=== PATIENT | female | born 1990 | race Caucasian/White ===

== ENCOUNTER 2018-12-22 09:00 | Inpatient (IN) | payer MEDICAID, OTHER, SELFPAY ==
--- NOTE | 2018-12-22 08:09 | PDOC.FPROB ---
FMR OB H&P: HPI - History of Present Illness Chief Complaint: repeat section History of Present Illness: 28 yo @ 39.wks by 8.1wk rajesh presents for repeat section X 3. She has had two prio CS completed here. She cari VB, contractions, LOF, vaginal discharge. +FM. FMR OB H&P: History - Past Medical History PMH: Glucose intolerance Anemia of Depression vs Adjustment d/o Hx of glaucoma - OB History OB History: Prior hx of two CS, 2013 ,2016 First CS for failure to dilate and late decels, second was a repeat. 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 - Surgical History Sx History: two prior CS - Social History Social History: denies smoking, alcohol, drug use - Family History Family History: maternal aunt with ovarian cancer-pt approved for RRS FMR OB H&P: Medications - Current Home Medications: Medication Instructions Recorded Confirmed Type Pnv95/Iron Fum/Folic Acid 1 each PO DAILY 09/14/16 12/22/18 History [ [place]] Allergies/Adverse Reactions: Allergies Allergy/AdvReac Type Severity Reaction Status Date / Time No Known Allergies Allergy Verified 12/22/18 10:42 FMR OB H&P: ROS - Review of Systems General: denies: fever/chills, weight/appetite/sleep changes ENT: denies: nasal congestion, rhinorrhea Respiratory: denies: cough, congestion, shortness of breath Gastrointestinal: denies: abdominal pain, nausea, vomiting, diarrhea Genitourinary (Female): denies: vaginal discharge, vaginal pain, vaginal bleeding, contractions Musculoskeletal: denies: pain Neurologic: denies: numbness, syncope Integumentary: denies: rash Endocrine: denies: polydipsia, polyuria, polyphagia Psychological: denies: depression, anxiety FMR OB H&P: Vital Signs - Maternal Vital signs: Selected Entries 12/22/18 10:41 Temperature 97.8 F Pulse Rate 88 Blood Pressure 114/60 [Semi-Fowlers] Respiratory 20 Rate - Heart Tones Baseline: 140 Variability: moderate Acceleration: present Category: category 1 FMR OB H&P: Physical Exam - Physical Exam General: NAD, awake, alert and oriented HEENT: normocephalic and atraumatic Heart: RRR, normal S1/S2, no murmurs/rubs/gallops, pulses present, no edema General: CTAB, good air movement Abdomen: soft, gravid Musculoskeletal: pulses present Skin: no rash, capillary refill <2 seconds Lymphatic: no unusual bruising or bleeding, no purpura Psychiatric: intact recent and remote memory, good judgement and insight FMR OB H&P: Results - Labs Other labs: HIV negative Rubella Immune Hep B surf AG negative RPR negative Gonorrhea negative Chlamydia negative O positive antibody negative Pap NILM Reba infection s/p treatment BV s/p treatment Varicella immune FMR OB H&P: A/P - Problem List (1) Term Current Visit: No Status: Acute Code(s): Z34.80 - ENCOUNTER FOR SUPRVSN OF NORMAL , UNSP TRIMESTER (2) Anemia affecting in third trimester Current Visit: No Status: Acute Code(s): O99.013 - ANEMIA COMPLICATING , THIRD TRIMESTER (3) Glucose intolerance Current Visit: No Status: Acute Code(s): E74.39 - OTHER DISORDERS OF INTESTINAL CARBOHYDRATE ABSORPTION (4) Hx of glaucoma Current Visit: No Status: Acute Code(s): Z86.69 - PERSONAL HISTORY OF DIS OF THE NERVOUS SYS AND SENSE ORGANS (5) History of Current Visit: Yes Status: Acute Code(s): Z98.891 - HISTORY OF UTERINE SCAR FROM PREVIOUS SURGERY Discussion: Date/Time: 12/22/18 0808 28 yo @ 39.1wks by 8.1wk rajesh admitted for repeat section. 1.)sIUP-admit to L&D. Consult anesthesia. Ancef for prophylaxis. Labs ordered. 2.)GBS positive- aware. pt to receive Ancef prior to section. Pt not ruptured or in labor and no allergies to pcn 3.)glucose intolerance-aware, has been counseled on diet during 4.)hx of candidal, vaginal infection, s/p tx 5.)hx of BV, s/p tx 6.)glaucoma hx-aware 7.)repeat x2 hx-aware; both prior cesareans completed here 8.)depression vs adjustment d/o-aware, continue to monitor Kimi Aguirre MD, PGY-2 This H&P was discussed with [] and [] who agree with the above documentation and plan. Addendum - Attending - Attending Attestation Date/Time: 12/22/18 5528 I personally evaluated the patient and discussed the management with Dr. Henriquez this morning at time of admission. I agree with the History, Examination, Assessment and Plan documented above with any addition or exceptions noted below.
[~2018-12-22 09:00] MED LIST: Bicitra 30 ML UDCUP PO SCH; CEFAZOLIN 2 GM in Premix Bag 1 BAG IVPB SCH; Ondansetron PF 4 MG/2 ML Vial IVP PRN; Promethazine HCl 25 MG/ML VIAL IM PRN
[2018-12-22 10:50] VITALS: BMI 33.6
[2018-12-22 11:16] LABS: Hemoglobin 11.2 g/dL (12.0-16.0); Mean Corpuscular HGB CONC 33.3 g/dL (32.0-36.0); Mean Corpuscular Hemoglobin 28.3 pg (27.0-31.0); Mean Corpuscular Volume 84.9 fL (78.0-98.0); Mean Platelet Volume 7.6 fL (7.4-10.4); Platelet Count 272 thou/uL (130-400); RBC Distribution Width 13.5 % (11.5-14.5); Red Blood Cell (RBC) Count 3.97 mill/uL (4.20-5.40); White Blood Cell (WBC) Count 8.1 thou/uL (4.8-10.8)
[2018-12-22 11:59] LABS: Syphilis Antibody Nonreactive (Nonreactive); Syphilis Antibody Index 0.03 S/CO (<1.00 Non-Reactive)
[2018-12-22] MEDS ORDERED: MORPHINE 5 MG/10 ML PF VIAL ONE (12:04)
[2018-12-22] MEDS ORDERED: Oxytocin 10 UNITS/ML VIAL ONE ×2 (12:05→13:57)
[2018-12-22 12:37] LABS: HBSAg Index 0.32 S/CO (0-0.99); Hep B Surf Ag Non-Reactive S/CO (NonReactive)
[2018-12-22] MEDS ORDERED: Promethazine HCl 25 MG/ML VIAL IM PRN ×2 (13:31→14:21)
[2018-12-22] MEDS ORDERED: Ketorolac Tromethamine 30 MG/ML VIAL IVP PRN (13:31)
[2018-12-22] MEDS ORDERED: Naloxone HCl 0.4 mg/ml Vial IV PRN ×2 (13:31→14:21)
[2018-12-22] MEDS ORDERED: Ondansetron PF 4 MG/2 ML Vial IVP PRN ×2 (13:31→14:21)
[2018-12-22] MEDS ORDERED: Promethazine HCl 25 MG SUPP PR PRN (13:31)
[2018-12-22] MEDS ORDERED: Naloxone HCl 0.4 mg/ml Vial IVP PRN ×2 (13:31)
[2018-12-22] MEDS ORDERED: Eucerin (Mineral Oil/Petrolatum,White) 30 gm Jar TOP PRN (13:31)
[2018-12-22] MEDS ORDERED: diphenhydrAMINE 50 MG/ML VIAL IVP PRN ×2 (13:31→14:21)
[2018-12-22] MEDS ORDERED: Ondansetron HCl/PF 4 MG/2 ML Vial IVP PRN ×2 (13:32→14:21)
[2018-12-22] MEDS ORDERED: L&D-Morphine 4 MG/ML VIAL SLOW IVP PRN ×2 (13:32→14:21)
[2018-12-22] MEDS ORDERED: HYDROmorphone 2 MG/ML VIAL SLOW IVP PRN ×2 (13:32→14:21)
[2018-12-22] MEDS ORDERED: Meperidine HCl/PF 25 MG/ML VIAL SLOW IVP PRN ×2 (13:32→14:21)
[2018-12-22] MEDS ORDERED: Midazolam HCl 2 mg/2 ml Vial ONE (13:43)
[2018-12-22] MEDS ORDERED: Fentanyl 100 MCG/2 ML VIAL ONE (13:43)
[2018-12-22] MEDS ORDERED: Ketorolac Tromethamine 30 MG/ML VIAL IVP SCH ×2 (13:45→14:30)
[2018-12-22] MEDS ORDERED: Communication Order-Pharmacy FS SCH ×2 (13:45→14:30)
[2018-12-22] MEDS ORDERED: Ketamine 50 MG/ML (10ML VIAL) ONE (14:00)
[2018-12-22] MEDS ORDERED: fentaNYL Citrate/PF 2,000 MCG in Sodium Chloride 0.9% 60 ML IV PRN (14:21)
[2018-12-22] MEDS ORDERED: Zolpidem Tartrate 5 MG TAB PO PRN (14:21)
[2018-12-22] MEDS ORDERED: diphenhydrAMINE 50 MG/ML VIAL IM PRN (14:21)
[2018-12-22] MEDS ORDERED: diphenhydrAMINE 25 MG CAP PO PRN (14:21)
[2018-12-22] MEDS ORDERED: HYDROcodone/Acetaminophen 5/325 mg Tablet PO PRN ×2 (15:36)
[2018-12-22] MEDS ORDERED: Methylergonovine 0.2 MG TAB PO PRN (15:36)
[2018-12-22] MEDS ORDERED: Adacel (T-DAP) 0.5 ML SYRINGE IM ONE (15:36)
[2018-12-22] MEDS ORDERED: Methylergonovine 0.2 MG/ML VIAL IM PRN (15:36)
[2018-12-22] MEDS ORDERED: Bisacodyl 10 MG SUPP PR PRN (15:36)
[2018-12-22] MEDS ORDERED: Misoprostol 200 MCG TAB PR PRN (15:36)
[2018-12-22] MEDS ORDERED: Lanolin Ointment 7 GM TUBE TOP PRN (15:36)
[2018-12-22] MEDS ORDERED: Acetaminophen 325 MG TAB PO PRN (15:36)
--- NOTE | 2018-12-22 16:42 | PDOC.OPDEL ---
OB Operative/Delivery Note Delivery Dr/Surgeon: Martinez Assist: Omar Pre-Delivery Diagnosis: scheduled section Procedure/Post Delivery Dx: repeat low transverse CS Weeks gestation: 39 (39.1) Anesthesia: spinal - Findings A Sex: female - 1 min: 8 - 5 min: 9 - Additional Findings/Plan Placenta delivered: manual removal findings: low transverse hysterotomy without extension Estimated blood loss: qBL: 505 Compilations/Other Findings: Procedure Note Date of Procedure: 12/22/18 Resident Surgeon: Kimi Henriquez, PGY-2, MD Payment Manager Surgeon: Lillie Nelson, PGY-1, MD Attending Surgeon: Martha Hernandez MD Consulting Surgeon: Dr Jonah Pineda MD Procedure: Repeat low transverse caesarean section, with risk-reducing bilateral salpingectomy. Preoperative Diagnosis: 1)Term intrauterine 2)Previous X 2 3)Glucose Intolerance 4)Anemia of 5.)Hx of Glaucoma 6.)MDD vs Adjustment d/o Postoperative Diagnosis: 1)Term intrauterine , delivered via repeat CS 2)Previous X 2 3)Glucose Intolerance 4)Anemia of 5.)Hx of Glaucoma 6.)MDD vs Adjustment d/o Anesthesia: spinal Indications: The patient is a 28 year old now [id number] female at 39.1 weeks gestation who presents for a repeat scheduled x 3. Procedure in Detail: After risks, benefits, and alternatives were explained to the patient, informed consent was obtained. Pre-operative antibiotics included Cefazolin 2 gram IV. The patient was taken to the operating room and spinal anesthesia was administered. She was placed in the dorsal supine position with a left tilt and prepped and draped in usual sterile fashion. After adequate anesthesia was confirmed, a Pfannenstiel incision was made with a scalpel and carried down to the level of the anterior rectus fascia which was sharply nicked. The fascial incision was extended bilaterally with Cui sissors. The inferior and superior edges of the fascial incision were elevated with Horace clamps and the underlying rectus muscles were sharply and bluntly . The recti were divided digitally and divided with hemostats and retracted manually and retracted with hemostats and via bovi. The peritoneum was entered bluntly digitally. Anterior uteroperitoneal and uterovesicular adhesions were noted and reduced the expose the lower uterine segment. The Bladder blade was placed. A low transverse score was made with the scalpel and the uterus was entered in the midline with the scalpel. Clear amniotic fluid was seen. The hysterotomy was extended manually in the cephalocaudal fashion. The infant was noted to be vertex and was easily delivered by fundal pressure. Mouth and nares were bulb suctioned. Cord clamped and cut and live female was handed to waiting nurse. was vigorous. Cord blood was obtained. Placenta was manually extracted, found to be intact with 3 vessel cord. The uterus was externalized and the endometrium was cleared with a dry lap. The bladder blade was replaced and the hysterotomy was closed with a running locking #1 Monocryl suture, with four additional figure of eight stitches of the same suture. Following this, hemostasis was confirmed. Our attention turned to the risk reducing salpingectomy which was performed by Dr Jonah Pineda in the usual fashion. Good hemostasis was confirmed. Blood was cleared from the abdominal cavity with a lap and suction. Hemostatis reconfirmed. The uterus was internalized. Omce internalized, the hysterotomy was noted to have some bleeding from the right edge of the hysterotomy, which required an additional figure of eight stitch using #1 Monocryl suture. Following this, good hemostasis was confirmed. The fascia was closed with a running non-locking 0- Vicryl suture. The subcutaneous tissue was irrigated and any small bleeding was bovied resulting in hemostasis. The skin was approximated with jean and a pressure dressing was placed. All counts were correct. The patient tolerated the procedure well and was taken to the recovery room in stable condition. Estimated Blood Loss: 800ml QBL: 505 ml Complications: None Grossly normal female infant with Apgars of 8 & 9. Grossly normal placenta with 3 vessel cord discarded. Drains: [place] to gravity draining clear urine Post delivery plan: recovery in LICU
[2018-12-22] MEDS: Lactated Ringer's 1,000 ML IV SCH (18:08)
[2018-12-22] MEDS: Ketorolac Tromethamine 30 MG/ML VIAL IVP SCH (18:08)
--- NOTE | 2018-12-22 20:45 | OP ---
DATE OF PROCEDURE: 12/22/2018 PREOPERATIVE DIAGNOSIS: Desirous of risk reducing salpingectomy. POSTOPERATIVE DIAGNOSIS: Desirous of risk reducing salpingectomy. PROCEDURE PERFORMED: Bilateral salpingectomies. SYSTEMS SUPPORT SPECIALIST SURGEON: Kit Hernandez MD. SECOND AUTOMATIC BLOCKER SURGEON: Kamla Henriquez MD. TECHNIQUE IN DETAIL: Pt. was consented prior to procedure. Upon my arrival to the operating room, the had been performed for this patient by Dr. Hernandez and the Resident and the hysterotomy incision had been closed. Good hemostasis was noted across the hysterotomy incision. Attention was turned to the left fallopian tube. The fimbriated end was noted and the mesosalpinx was serially clamped, excised, and suture ligated. This was carried up to the insertion of the tube into the fundus. Good hemostasis was noted on the left side. A similar procedure was carried out on the other side also employing Monocryl suture. Good hemostasis was noted on both sides. The case was then turned over to Dr. Hernandez and his team for closure of the anterior abdominal wall and completion of the surgery. Job ID: [id number] [facility]
[2018-12-23] MEDS: Docusate Calcium (SURFAK) 240 MG CAP PO SCH ×3 (06:23→20:33)
[2018-12-23] MEDS: Ketorolac Tromethamine 30 MG/ML VIAL IVP SCH ×3 (06:23→13:23)
[2018-12-23] MEDS: Lactated Ringer's 1,000 ML IV SCH ×4 (06:29→18:02)
--- NOTE | 2018-12-23 07:19 | PDOC.OBPPN ---
FMR OB PN: Subj - Interval History Day: 1 Chief Complaint: repeat CS X3 Indentification: 28 yo now3 Interval History: doing well. keys pulled. tolerating normal diet. passing flatus. FMR OB PN: Obj - Maternal Vital signs: BP: [] HR: [] RR: [] Tmax: [] Pox: []% on [] Wt: [] Selected Entries 12/23/18 05:00 Temperature 98.0 F Pulse Rate 101 H Blood Pressure 105/60 [Semi-Fowlers] Respiratory 18 Rate O2 Sat by Pulse 99 Oximetry - Urine output I&O: 12/22/18 12/23/18 12/24/18 06:59 06:59 06:59 Intake Total 2221 Output Total 6050 Balance -3829 - Pain Management Intervention: oral medication (norco prn, ibuprofen 800mg q8h daren) FMR OB PN: Exam - Physical Exam General: NAD, awake, alert and oriented HEENT: normocephalic and atraumatic, PERRLA Heart: normal S1/S2 Deviation from normal: tachycardic General: CTAB, no respiratory distress Abdomen: soft, other (incision clean dry and intact) Skin: no rash, capillary refill <2 seconds : incision healing well, no erythema, no edema, no drainage, appropriately tender Lymphatic: no unusual bruising or bleeding Psychiatric: intact recent and remote memory FMR OB PN: Data - Labs Lab results: Laboratory Results - last 24 hr 12/22/18 12/22/18 12/22/18 10:38 10:38 10:38 WBC 8.1 RBC 3.97 L Hgb 11.2 L Hct 33.7 L MCV 84.9 MCH 28.3 MCHC 33.3 RDW 13.5 Plt Count 272 MPV 7.6 Syphilis IgG/IgM Ab Nonreactive Hep Bs Antigen Non-Reactive Blood Type Antibody Screen 12/22/18 10:38 WBC RBC Hgb Hct MCV MCH MCHC RDW Plt Count MPV Syphilis IgG/IgM Ab Hep Bs Antigen Blood Type O POSITIVE Antibody Screen NEGATIVE FMR OB PN: A/P - Problem List (1) Term Current Visit: No Status: Acute Code(s): Z34.80 - ENCOUNTER FOR SUPRVSN OF NORMAL , UNSP TRIMESTER (2) Anemia affecting in third trimester Current Visit: No Status: Acute Code(s): O99.013 - ANEMIA COMPLICATING , THIRD TRIMESTER (3) Glucose intolerance Current Visit: No Status: Acute Code(s): E74.39 - OTHER DISORDERS OF INTESTINAL CARBOHYDRATE ABSORPTION (4) Hx of glaucoma Current Visit: No Status: Acute Code(s): Z86.69 - PERSONAL HISTORY OF DIS OF THE NERVOUS SYS AND SENSE ORGANS (5) History of Current Visit: Yes Status: Acute Code(s): Z98.891 - HISTORY OF UTERINE SCAR FROM PREVIOUS SURGERY Discussion: Date/Time: 12/23/18 0718 28 yo @ 39.1wks by 8.1wk sono s/p repeat section x 3 1.)sIUP, delivered via repeat CS x3 -encourage ambulation, monitor I/O's. Advance diet as tolerated. Hemagram pending. [place] to be removed POD5 -pt tachycardic, afebrile, hemagram pending; will give a 500ml bolus of LR and monitor vitals for s/s of infection 2.)GBS positive-aware 3.)glucose intolerance-aware, has been counseled on diet during 4.)hx of candidal, vaginal infection, s/p tx 5.)hx of BV, s/p tx 6.)glaucoma hx-aware 7.)repeat x2 hx-aware; both prior cesareans completed here 8.)depression vs adjustment d/o-aware, continue to monitor Kimi Henriquez MD, PGY-2 Addendum - Attending - Attending Attestation Date/Time: 12/23/18 1140 I personally evaluated the patient and discussed the management with Dr. Gaston. I agree with the History, Examination, Assessment and Plan documented above with any addition or exceptions noted below.
[2018-12-23 07:48] LABS: Hemoglobin 10.4 g/dL (12.0-16.0); Mean Corpuscular HGB CONC 34.3 g/dL (32.0-36.0); Mean Corpuscular Hemoglobin 29.1 pg (27.0-31.0); Mean Corpuscular Volume 84.7 fL (78.0-98.0); Mean Platelet Volume 7.4 fL (7.4-10.4); Platelet Count 235 thou/uL (130-400); RBC Distribution Width 13.5 % (11.5-14.5); Red Blood Cell (RBC) Count 3.57 mill/uL (4.20-5.40); White Blood Cell (WBC) Count 10.3 thou/uL (4.8-10.8)
[2018-12-23] MEDS: Prenatal Vitamin 1 TAB PO SCH (07:51)
[2018-12-23] MEDS ORDERED: HYDROcodone/Acetaminophen 5/325 mg Tablet PO PRN (11:09)
[2018-12-23] MEDS ORDERED: Ketorolac Tromethamine 30 MG/ML VIAL IVP PRN (11:11)
[2018-12-23] MEDS ORDERED: Ibuprofen 800 MG TAB PO PRN (11:12)
[2018-12-23] MEDS ORDERED: Fentanyl 100 MCG/2 ML VIAL SLOW IVP PRN (11:12)
[2018-12-23] MEDS ORDERED: Lactated Ringer's 500 ML IV SCH (11:15)
[2018-12-23] MEDS: HYDROcodone/Acetaminophen 5/325 mg Tablet PO PRN ×2 (11:32→17:21)
[2018-12-23] MEDS: Simethicone Chewable 80 MG TAB PO PRN ×2 (13:17→21:44)
--- NOTE | 2018-12-23 15:21 | PDOC.EVN ---
Event Note - Event Note Event Note: Evaluated patient. Patient state her right upper back/chest pain occurred while using restroom and has spontaneously resolved without intervention. She is not currently feeling sob, having chest pain, deny new extremities edema, emesis. Her o2 sat was 97, resp 20, mildly tachy at 114 and bp 142/87. She had clear breath sound throughout, rrr without m/g/r, no extremities swelling. Advise patient to call next time this occurred. Considered PE, ACS, though hx, PE and symptom together do not suggest that. If it occurs again, will consider EKG and ABG. As for her BP, plan to repeat BP in 4 hours to assess for pre-e spectrum disorder.
[2018-12-23] MEDS: Ibuprofen 800 MG TAB PO SCH ×2 (18:01→21:40)
[2018-12-24] MEDS: Lactated Ringer's 1,000 ML IV SCH ×3 (00:14→15:42)
[2018-12-24] MEDS: Ibuprofen 800 MG TAB PO SCH ×3 (06:02→21:31)
[2018-12-24] MEDS: HYDROcodone/Acetaminophen 5/325 mg Tablet PO PRN ×4 (06:02→21:31)
[2018-12-24] MEDS ORDERED: Lactated Ringer's 500 ML IV SCH (08:00)
--- NOTE | 2018-12-24 08:01 | PDOC.OBPPN ---
FMR OB PN: Subj - Interval History Day: 28 yo now 3 s/p rLTCS X 3 and RRS. POD 2 C/o chest pain x3 episodes last night, with laying flat. She feels chest pressure and tightness and shortness of breath with laying down, slept upright last night. Feels like she can't take a big breath in. She states the pain is pressure and radiates up neck and down her right arm. She has been ambulating, passing gas, tolerating a normal diet, urinating, . Chief Complaint: repeat CS x3 Indentification: 28 yo FMR OB PN: Obj - Maternal Vital signs: Selected Entries 12/24/18 04:20 Temperature 98.3 F Pulse Rate 101 H Blood Pressure 109/77 [Sitting] Respiratory 16 Rate O2 Sat by Pulse 97 Oximetry Oxygen Delivery Room Air Method - Urine output I&O: 12/23/18 12/24/18 12/25/18 06:59 06:59 06:59 Intake Total 2221 1130 Output Total 6050 Balance -3829 1130 - Lochia Lochia: minimal FMR OB PN: Exam - Physical Exam General: NAD, awake, alert and oriented HEENT: normocephalic and atraumatic, PERRLA Chest: non-tender to palpation, no lesions Heart: normal S1/S2, no murmurs/rubs/gallops, no edema, other (no lower extremity edema) Deviation from normal: tachycardic General: CTAB, no respiratory distress, good air movement, no rales/rhonchi, no wheezing, no retractions Abdomen: soft, other (hypoactive bowel sounds) Deviation from normal: appropriately tender Musculoskeletal: pulses present Skin: no rash, good tugor, other (mildly delayed capillary refill) : incision healing well, no erythema, no edema, no drainage, appropriately tender Psychiatric: intact recent and remote memory - Pelvic Exam : normal lochia FMR OB PN: A/P - Problem List (1) Shortness of breath Current Visit: Yes Status: Acute Code(s): R06.02 - SHORTNESS OF BREATH (2) Chest pain Current Visit: Yes Status: Acute Code(s): R07.9 - CHEST PAIN, UNSPECIFIED (3) Tachycardia Current Visit: Yes Status: Acute Code(s): R00.0 - TACHYCARDIA, UNSPECIFIED (4) Anemia affecting in third trimester Current Visit: No Status: Acute Code(s): O99.013 - ANEMIA COMPLICATING , THIRD TRIMESTER (5) Term Current Visit: No Status: Acute Code(s): Z34.80 - ENCOUNTER FOR SUPRVSN OF NORMAL , UNSP TRIMESTER (6) Glucose intolerance Current Visit: No Status: Acute Code(s): E74.39 - OTHER DISORDERS OF INTESTINAL CARBOHYDRATE ABSORPTION (7) Hx of glaucoma Current Visit: No Status: Acute Code(s): Z86.69 - PERSONAL HISTORY OF DIS OF THE NERVOUS SYS AND SENSE ORGANS (8) History of Current Visit: Yes Status: Acute Code(s): Z98.891 - HISTORY OF UTERINE SCAR FROM PREVIOUS SURGERY Discussion: Date/Time: 12/24/18 0800 28 yo @ 39.1wks by 8.1wk sono s/p repeat section x 3, POD2 1.)sIUP, delivered via repeat CS x3 -continue to encourage ambulation, monitor I/O's. Mildly tachycardic, afebrile. Appropriate drop in H/H. And net negative 3.8L yesterday, will give another 500ml bolus of LR. Continue regular diet. [place] to be removed POD5 2.)Tachycardic, shortness of breath, chest pain- pt has had three episodes o/n of chest pressure, right sided and difficulty taking a deep breaths, feeling short of breath, associated with laying flat. Afebrile. Low normal BP. Lungs CTAB this am, appropriately tender for uterus. EKG, CXR, troponins and BNP, b/l lower extremity dopplers, and ABG ordered. Considering PE, atypical chest pain, gas pains, less likely infectious. Will monitor closely. 3.)glucose intolerance-aware, has been counseled on diet during 4.)hx of candidal, vaginal infection, s/p tx 5.)hx of BV, s/p tx 6.)glaucoma hx-aware 7.)repeat x2 hx-aware; both prior cesareans completed here 8.)depression vs adjustment d/o-aware, continue to monitor 9.)GBS positive-aware Addendum - Attending - Attending Attestation Date/Time: 12/24/18 4042 I personally evaluated the patient and discussed the management with Dr. Henriquez. I agree with the History, Examination, Assessment and Plan documented above with any addition or exceptions noted below. Patient had tachycardia with intermittent Chest prssure adn SOB. Concern for anemia, PE, cardiac etiology prompted eval. With a normal ABG, normal CXR, and neg doppler of the LE, PE is excluded. HGB is stable. Tachycardia has resolved this morning. We do note left axis deviation and interventricular conduction delay we will arrange cardiac echo.
[2018-12-24] MEDS ORDERED: Sodium Chloride 0.9% 10 ML ONE (08:40)
--- NOTE | 2018-12-24 09:20 | RAD ---
AP view chest. HISTORY: Shortness of breath. AP view chest demonstrates mild cardiomegaly. The lungs are well aerated. No evidence of active intra thoracic disease seen. No evidence of effusions, pneumonia or pneumothorax seen. IMPRESSION: mild cardiomegaly.
[2018-12-24 09:23] LABS: Actual Bicarbonate (HCO3a) 26.8 mEq/L (22-28); Base Excess (BEa) 2.2 mEq/L (-2.0 to +3.0); CO2 Tension 41.8 mmHg (35.0-45.0); Carboxyhemoglobin (COHb) 0.8 gm% (0.0-3.0); Hemoglobin (Hb) 10.2 g/dL (12.0-16.0); O2 Tension (PaO2) 90.3 mmHg (80.0-100.0); pH, Arterial 7.43 (7.35-7.45)
[2018-12-24 09:26] LABS: Puncture Site RBA
--- NOTE | 2018-12-24 09:45 | ULT ---
BILATERAL LOWER EXTREMITY VENOUS DOPPLER ULTRASOUND EVALUATION: HISTORY: Chest pain, recent . FINDINGS: Multiple longitudinal and transverse images of the right and left lower extremity venous systems are obtained using a MultiHertz linear ray transducer. Real-time, color flow and spectral waveform Doppler analysis demonstrates no evidence of acute or old clot seen in the right or left common femor al, superficial femoral, femoral profunda, popliteal, posterior tibial veins and greater saphenous veins. IMPRESSION: No evidence of right or left lower extremity deep venous thrombosis. Transcribed Date/Time: 12/24/2018 10:05 AM
[2018-12-24] MEDS: Prenatal Vitamin 1 TAB PO SCH (10:41)
[2018-12-24] MEDS: Docusate Calcium (SURFAK) 240 MG CAP PO SCH ×2 (10:41→21:31)
[2018-12-24] MEDS: Simethicone Chewable 80 MG TAB PO PRN ×2 (14:48→21:31)
[2018-12-24] MEDS ORDERED: Ibuprofen 800 MG TAB PO SCH (22:00)
[2018-12-25] MEDS: Lactated Ringer's 1,000 ML IV SCH ×2 (01:17→10:02)
[2018-12-25] MEDS: Ibuprofen 800 MG TAB PO SCH (05:35)
--- NOTE | 2018-12-25 08:09 | PDOC.OBPPN ---
FMR OB PN: Subj - Interval History Day: POD3 28 yo now P3 s/p rLTCS X 3 and RRS. Doing well this am. Denies shortness of breath or chest pain. Wants to go home. FMR OB PN: Obj - Maternal Vital signs: Selected Entries 12/25/18 05:35 Temperature 97.9 F Pulse Rate 83 Blood Pressure 126/78 [Semi-Fowlers] Respiratory 16 Rate - Urine output I&O: 12/24/18 12/25/18 12/26/18 06:59 06:59 06:59 Intake Total 1130 Output Total 750 Balance 1130 -750 FMR OB PN: Exam - Physical Exam General: NAD, awake, alert and oriented HEENT: normocephalic and atraumatic Heart: RRR, normal S1/S2, no murmurs/rubs/gallops, no edema General: CTAB, no respiratory distress, good air movement Abdomen: soft, other (appropriately tender. incision clean dry and intact) Skin: no rash, capillary refill <2 seconds Psychiatric: intact recent and remote memory, good judgement and insight FMR OB PN: Data - Labs Lab results: Laboratory Results - last 24 hr 12/24/18 12/24/18 12/24/18 08:44 09:10 09:39 Specimen Type ARTERIAL Puncture Site RBA Bicarbonate Actual 26.8 ABG pH 7.43 ABG pCO2 41.8 ABG pO2 90.3 ABG O2 Sat Calc/Tobin 96.7 ABG O2 Content 13.8 L ABG Base Excess 2.2 ABG Hematocrit 30.0 L ABG Hemoglobin 10.2 L ABG Oxyhemoglobin 95.6 ABG Carboxyhemoglobin 0.8 ABG Methemoglobin 0.30 ABG Deoxyhemoglobin 3.3 H Ramone Test NOT DONE A-a O2 Gradient 7.180 Sodium 137 Potassium 3.90 Chloride 107 H Ionized Calcium 1.20 Mode of Support RM AIR Inspired O2 21 Troponin I Less than 0.010 B-Natriuretic Peptide 31.6 FMR OB PN: A/P - Problem List (1) Shortness of breath Current Visit: Yes Status: Acute Code(s): R06.02 - SHORTNESS OF BREATH (2) Chest pain Current Visit: Yes Status: Acute Code(s): R07.9 - CHEST PAIN, UNSPECIFIED (3) Tachycardia Current Visit: Yes Status: Acute Code(s): R00.0 - TACHYCARDIA, UNSPECIFIED (4) Anemia affecting in third trimester Current Visit: No Status: Acute Code(s): O99.013 - ANEMIA COMPLICATING , THIRD TRIMESTER (5) Term Current Visit: No Status: Acute Code(s): Z34.80 - ENCOUNTER FOR SUPRVSN OF NORMAL , UNSP TRIMESTER (6) Glucose intolerance Current Visit: No Status: Acute Code(s): E74.39 - OTHER DISORDERS OF INTESTINAL CARBOHYDRATE ABSORPTION (7) Hx of glaucoma Current Visit: No Status: Acute Code(s): Z86.69 - PERSONAL HISTORY OF DIS OF THE NERVOUS SYS AND SENSE ORGANS (8) History of Current Visit: Yes Status: Acute Code(s): Z98.891 - HISTORY OF UTERINE SCAR FROM PREVIOUS SURGERY Discussion: Date/Time: 12/25/18 0808 28 yo @ 39.1wks by 8.1wk sono s/p repeat section x 3, POD3 1.)sIUP, delivered via repeat CS x3 -Okay for dc today. [place] removed today. PNC follow-up in 2 weeks. Pt advised to take ibuprofen and tylenol prn pain at home. 2.)Tachycardic, shortness of breath, chest pain-Resolved. 3.)Glucose intolerance-aware, has been counseled on diet during 4.)hx of candidal, vaginal infection, s/p tx 5.)hx of BV, s/p tx 6.)glaucoma hx-aware 7.)repeat x2 hx-aware; both prior cesareans completed here 8.)depression vs adjustment d/o-aware, continue to monitor 9.)GBS positive-aware Disp: ok for dc today Addendum - Attending - Attending Attestation Date/Time: 12/25/18 3209 I personally evaluated the patient and discussed the management with Dr. Mccall. I agree with the History, Examination, Assessment and Plan documented above with any addition or exceptions noted below. Stable for discharge.
[2018-12-25 09:00] VITALS: BP 131/69; TEMP 97.7
[2018-12-25] MEDS: Prenatal Vitamin 1 TAB PO SCH (10:02)
[2018-12-25] MEDS: Docusate Calcium (SURFAK) 240 MG CAP PO SCH (10:03)
== END 2018-12-25 11:38 | disposition home or self-care (01) | DRG 785 ==
LOC: L&D 09:56 → 3SW 15:55
PROVIDERS: ADMIT Family Medicine; ATTEND Family Medicine
PROC: 10D00Z1 Extraction of Products of Conception, Low, Open Approach (ICD-10-PCS; principal; 2018-12-22)
PROC: 0UT70ZZ Resection of Bilateral Fallopian Tubes, Open Approach (ICD-10-PCS; 2018-12-22)
PROC: B51D1ZZ Fluoroscopy of Bilateral Lower Extremity Veins using Low Osmolar Contrast (ICD-10-PCS; 2018-12-22)
DX: O34.211 Maternal care for low transverse scar from previous cesarean delivery (principal); Z3A.39 39 weeks gestation of pregnancy; Z37.0 Single live birth; O99.02 Anemia complicating childbirth; D64.9 Anemia, unspecified; O99.344 Other mental disorders complicating childbirth; F32.9 Major depressive disorder, single episode, unspecified; Z30.2 Encounter for sterilization
CPT/HCPCS: 36415; 71045; 82805; 83880; 84484; 85027; 86780; 86850; 86900; 86901; 87340; 88305; 93005; 93010; 93306; 93970; J0690; J1200; J1885; J2250; J2270; J2405; J2590; J3010; J3490